=== PATIENT | female | born 1960 | race African-American/Black ===

== ENCOUNTER 2018-12-07 17:38 | Emergency (ER) | payer OTHER ==
[~2018-12-07] VITALS: Ht 167.6 cm; Wt 132.0 kg
[2018-12-07 17:50] VITALS: Ht 167.6 cm; Wt 132.0 kg
[2018-12-07] MEDS ORDERED: CARVEDILOL3.125 M1 PO (18:10)
[2018-12-07] MEDS ORDERED: LANTUS SOLOS100 U/M1 (18:10)
[2018-12-07] MEDS ORDERED: ENALAPRIL MALE2.5 MG (18:10)
[2018-12-07] MEDS ORDERED: METOPROLOL SUCC25 M2 (18:10)
[2018-12-07 18:32] LABS: CARBON DIOXIDE 27.8 mmol/L (21-32); CREATININE SERUM 1.2 mg/dL (0.6-1.0); POTASSIUM SERUM 3.8 mmol/L (3.5-5.1)
[2018-12-07 18:37] LABS: ALBUMIN 3.6 g/dL (3.4-5.0); BILIRUBIN TOTAL 0.31 mg/dL (0.20-1.00)
[2018-12-07 19:08] LABS: BASOPHIL % 0.5 % (0-2); PLATELET COUNT 278 x10^3mcL (130-400); RED CELL DISTRIBUTION WIDTH 14.5 % (11.5-14.5)
[2018-12-07 21:32] VITALS: BP 182/86
== END 2018-12-07 21:32 | disposition home or self-care (01) ==
LOC: ED 17:38
PROVIDERS: Emergency Medicine
DX: I16.0 Hypertensive urgency (principal); I10 Essential (primary) hypertension; E11.9 Type 2 diabetes mellitus without complications; E78.00 Pure hypercholesterolemia, unspecified; Z98.890 Other specified postprocedural states
CPT/HCPCS: J0360; J3490; Q0092

== ENCOUNTER 2019-02-20 18:48 | Emergency (ER) | payer OTHER ==
[~2019-02-20] VITALS: Ht 167.6 cm; Wt 129.7 kg
[~2019-02-20 18:48] MED LIST: CARVEDILOL3.125 M1 PO; ENALAPRIL MALE2.5 MG; LANTUS SOLOS100 U/M1; METOPROLOL SUCC25 M2
[2019-02-20 18:55] VITALS: Ht 167.6 cm; Wt 129.7 kg
[2019-02-20 20:38] VITALS: BP 165/101
== END 2019-02-20 20:54 | disposition home or self-care (01) ==
LOC: ED 18:48
DX: I10 Essential (primary) hypertension (principal); E11.9 Type 2 diabetes mellitus without complications; E78.00 Pure hypercholesterolemia, unspecified; Z98.890 Other specified postprocedural states